=== PATIENT | female | born 1970 | race Two or more races ===

== ENCOUNTER 2017-02-23 22:34 | Emergency (ER) | payer MEDICAID ==
[~2017-02-23] VITALS: Ht 154.9 cm; Wt 68.9 kg
[2017-02-23 23:02] VITALS: BP 160/81
[2017-02-24 00:44] LABS: Urine Bilirubin Negative (Negative); Urine Blood TRACE /uL (Negative); Urine Color Colorless (Yellow); Urine Glucose Normal (Normal); Urine Ketone Negative (Negative); Urine Nitrite Negative (Negative); Urine RBC <1 /hpf (0 - 4); Urine Squamous Epithelial Cell FEW /hpf (<5); Urine Urobilinogen Normal (Negative)
[2017-02-24] MEDS ORDERED: CYCLOBENZAPRINE HCL 10 MG TAB PO ONE (02:30)
[2017-02-24] MEDS ORDERED: IBUPROFEN 600 MG TAB PO ONE (02:30)
== END 2017-02-24 03:58 | disposition home or self-care (01) ==
LOC: ER 22:36
DX: S43.402A Unspecified sprain of left shoulder joint, initial encounter (principal); I10 Essential (primary) hypertension; V73.5XXA Driver of bus injured in collision with car, pick-up truck or van in traffic accident, initial encounter; Y93.89 Activity, other specified; Y92.89 Other specified places as the place of occurrence of the external cause; Y99.8 Other external cause status
CPT/HCPCS: 72125; 73030; 81001; 81025

== ENCOUNTER 2017-05-21 02:45 | Emergency (ER) | payer MEDICAID ==
[~2017-05-21] VITALS: Ht 167.6 cm; Wt 72.6 kg
[2017-05-21 05:18] LABS: Basophils # (auto) 0 uL; Basophils % (auto) 0.4 % (0.0-2.0); Eosinophils # (auto) 0.1 uL; Eosinophils % (auto) 1.5 % (0.0-7.0); Hematocrit 43.6 % (36.0-46.0); Hemoglobin 14.7 g/dL (12.2-16.2); Lymphocytes # (auto) 1.6 uL; Lymphocytes % (auto) 24.3 % (10.0-50.0); Mean Corpuscular Hemoglobin 30.2 pg (28.0-32.0); Mean Corpuscular Hgb Conc. 33.7 g/dL (32.0-36.0); Mean Corpuscular Volume 89.4 fL (80.0-100.0); Monocytes # (auto) 0.3 uL; Neutrophils # (auto) 4.6 uL; Neutrophils % (auto) 69.8 % (37.0-80.0); Nucleated Red Blood Cells % 0.2 %; Platelet Count (auto) 260 10^3/uL (140-450); Red Blood Cells 4.87 10^6/uL (4.0-5.20); Red Cell Distribution Width 13.2 % (11.8-14.3); White Blood Cell 6.5 10^3/uL (4.4-10.8)
[2017-05-21 05:48] LABS: Chloride 110 mmol/L (98-107); Potassium 3.8 mmol/L (3.5-5.1); Sodium 143 mmol/L (136-145)
[2017-05-21 05:57] LABS: Alanine Aminotransferase 21 U/L (13-56); Albumin 4.4 g/dL (3.4-5.0); Anion Gap 11 (5-15); Aspartate Aminotransferase 15 U/L (15-37); BUN/Creatinine Ratio 15.1; Blood Alcohol < 3.0 mg/dL (0-5); Blood Urea Nitrogen 11 mg/dL (7-18); Calcium 9.1 mg/dL (8.5-10.1); Carbon Dioxide 22 mmol/L (21-32); GFR African American 109 mL/min; GFR Non-African American 90 mL/min; Glucose 106 mg/dL (74-106); INR 0.93 (0.9-1.15); Prothrombin Time 10.1 sec (9.37-12.3)
[2017-05-21 06:00] LABS: Alkaline Phosphatase 86 U/L (45-117); Bilirubin, Total 0.4 mg/dL (0.2-1.0); Total Protein 8.9 g/dL (6.4-8.2)
[2017-05-21 06:01] LABS: Acetaminophen < 2.0 ug/mL (10-30); Salicylate < 1.7 mg/dL (2.8-20.0)
[2017-05-21 10:35] VITALS: BP 154/96
== END 2017-05-21 10:41 | disposition home or self-care (01) ==
LOC: EDBD 02:45 → ER 02:55
DX: T39.311A Poisoning by propionic acid derivatives, accidental (unintentional), initial encounter (principal); I10 Essential (primary) hypertension; F41.8 Other specified anxiety disorders; Z87.442 Personal history of urinary calculi; Y92.89 Other specified places as the place of occurrence of the external cause
CPT/HCPCS: 36415; 71045; 80053; 80320; 80329; 85025; 85610; 85730; 93005

== ENCOUNTER 2019-05-10 22:29 | Emergency (ER) | payer MEDICAID, OTHER ==
[~2019-05-10] VITALS: Ht 157.5 cm; Wt 70.8 kg
[2019-05-10] MEDS ORDERED: cloNIDine HCL 0.1 MG TAB ONE (23:28)
[2019-05-10] MEDS ORDERED: cloNIDine HCL 0.1 MG TAB PO ONE (23:45)
[2019-05-11 07:55] VITALS: BP 141/70
== END 2019-05-11 08:11 | disposition home or self-care (01) ==
LOC: ER 22:33
DX: S16.1XXA Strain of muscle, fascia and tendon at neck level, initial encounter (principal); I10 Essential (primary) hypertension; R07.9 Chest pain, unspecified; Z87.442 Personal history of urinary calculi; W20.8XXA Other cause of strike by thrown, projected or falling object, initial encounter; Y93.89 Activity, other specified; Y92.69 Other specified industrial and construction area as the place of occurrence of the external cause; Y99.8 Other external cause status
CPT/HCPCS: 71045; 72125